=== PATIENT | male | born 1990 | race Caucasian/White ===

== ENCOUNTER 2018-09-13 10:45 | Emergency (ER) | payer OTHER ==
[2018-09-13 10:53] VITALS: BP 162/95
--- NOTE | 2018-09-13 12:00 | ED Physician Documentation ---
PD HPI ANIMAL BITE - Stated complaint Stated Complaint: LEFT HAND DOG BITE - Chief complaint Chief Complaint: Wound - History obtained from History obtained from: Patient, Family - History of Present Illness Location of injury(ies): Left hand Details of the event: Dog, Pet animal, Well appearing, Immunized, Provoked, Animal can be observed Timing - onset: Last night Timing - duration: Hours Timing - details: Abrupt onset, Still present Improved by: Rest, Immobilization Worsened by: Moving, Palpating Associated symptoms: Swelling. No: Weakness, Numbness, Tingling Similar symptoms before: Has not had sx before Recently seen: Not recently seen - Additional information Additional information: 27-year-old male was at his home last night when to dogs got into a fight. He got between the 2 dogs to stop the fight and he was bit in the left hand. The dogs are available for observation and have been immunized. The patient indicates 1 dog is his one dog is a neighbors dog. Review of Systems Constitutional: denies: Fever Eyes: denies: Decreased vision Ears: denies: Ear pain Nose: denies: Congestion Respiratory: denies: Cough GI: denies: Vomiting PD PAST MEDICAL HISTORY - Present Medications Home Medications: Ambulatory Orders Medication Instructions Recorded Confirmed Amox/Clav 875/125 [Augmentin] 1 each PO Q12H #14 tablet 09/13/18 - Allergies Allergies/Adverse Reactions: Allergies Allergy/AdvReac Type Severity Reaction Status Date / Time No Known Drug Allergies Allergy Verified 09/13/18 10:53 PD ED PE NORMAL - Vitals Vital signs reviewed: Yes (hypertensive ) - General General: Alert and oriented X 3, No acute distress, Well developed/nourished - HEENT HEENT: Atraumatic, PERRL, EOMI - Respiratory Respiratory: No respiratory distress - Derm Derm: Normal color, Warm and dry - Extremities Extremities: No deformity, No edema, Other (There are 2 puncture wounds to the dorsum of the left hand. There is swelling and redenss associated more than expected for the bite alone. There is no lymphangitic streaking and the extent of the discoloration is about 1cm. 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 Departure - Departure Disposition: 01 Home, Self Care Clinical Impression: Infected dog bite of hand Qualifiers: Encounter type: initial encounter Laterality: left Qualified Code(s): S61.452A - Open bite of left hand, initial encounter; L08.9 - Local infection of the skin and subcutaneous tissue, unspecified; W54.0XXA - Bitten by dog, initial encounter Instructions: ED Bite Animal General Follow-Up: [facility] [Provider Group] Prescriptions: Amox/Clav 875/125 [Augmentin] 1 each PO Q12H #14 tablet
== END 2018-09-13 12:08 | disposition home or self-care (01) ==
LOC: ED 10:45
DX: S61.452A Open bite of left hand, initial encounter (principal); W54.0XXA Bitten by dog, initial encounter
CPT/HCPCS: 99283

== ENCOUNTER 2019-07-21 13:16 | Outpatient (CLI) | payer OTHER | END 2019-07-21 13:17 | disposition home or self-care (01) | LOC: COV 13:16 | PROVIDERS: ATTEND Family Medicine | DX: R05 Cough (principal); R50.9 Fever, unspecified | CPT/HCPCS: 81599 ==

== ENCOUNTER 2020-05-09 12:54 | Outpatient (CLI) | payer OTHER ==
--- NOTE | 2020-05-09 14:32 | MRI Report ---
PROCEDURE: Knee LT W/O INDICATIONS: LEFT KNEE SPRAIN TECHNIQUE: Noncontrast sagittal PD fast spin echo and T2 fast spin echo with fat saturation, sagittal 3-D spoile d GE with fat saturation; coronal T1 spin echo and PD fast spin echo with fat saturation, and axial P D fast spin echo with fat saturation through the knee. COMPARISON: None. FINDINGS: Image quality: Excellent. Menisci: The medial and lateral menisci are intact. There is no meniscal extrusion. Cruciate ligaments: The anterior and posterior cruciate ligaments appear intact. Medial structures: The medial collateral ligament appears intact. The semimembranosus tendon insert ions appear intact. Visualized portions of the pes anserinus tendons appear normal. Lateral structures: The lateral collateral ligament, long and short heads of the biceps femoris tend on appear intact. The popliteus tendon appears mildly attenuated near its femoral attachment without signs of an acute tear. Iliotibial band appears normal. Anterior structures: There is mild proximal patellar tendinosis. Ossifications adjacent to the tibial tubercle are compatible with a history of Crook-Schlatter syndrome. No femoral trochlear dysplasia or ventral trochlear prominence. No edema in the infrapatellar fat pad. Bones and cartilage: No bone marrow contusion or acute fracture. The cartilage of the medial and la teral femorotibial compartments, as well as the patellofemoral compartment, appears normal in thickne ss. Joint space and soft tissues: There is a small joint effusion. There is no medial popliteal cyst. A lobulated ganglion cyst is seen adjacent to the origin of the medial head of the gastrocnemius muscl e measuring 2.3 x 1.9 x 1.5 cm. IMPRESSION: 1. No acute trabecular bone injury. The cruciate and collateral ligaments are intact. There is no me niscal tear. 2. Mild proximal patellar tendinosis. 3. Lobulated 2.3 cm pericapsular ganglion cyst is seen adjacent to the origin of the medial head of the gastrocnemius muscle. 4. Small joint effusion. Reviewed by: Neftali Thurman MD on 05/09/2020 2:31 PM PST Approved by: Neftali Thurman MD on 05/09/2020 2:31 PM PST Station ID: [id number]
== END 2020-05-09 12:55 | disposition home or self-care (01) ==
LOC: DI 12:54
PROVIDERS: ATTEND Student in an Organized Health Care Education/Training Program
DX: M67.462 Ganglion, left knee (principal)

== ENCOUNTER 2022-02-28 11:17 | Emergency (ER) | payer OTHER, BC ==
[2022-02-28 11:30] VITALS: BP 142/86
--- NOTE | 2022-02-28 12:17 | XRAY Report ---
PROCEDURE: Foot 3 View RT INDICATIONS: Trauma TECHNIQUE: 3 views of the foot were acquired. COMPARISON: None FINDINGS: Bones: No acute fractures or dislocations. Well-corticated fragment over dorsal aspect of talus is seen suggestive of old healed injury. No suspicious bony lesions. Soft tissues: No tibiotalar joint effusion. Achilles tendon appears normal. IMPRESSION: No acute right foot fracture or dislocation. No gross soft tissue disease. Reviewed by: Melquiades Rae MD on 02/28/2022 12:15 PM PDT Approved by: Melquiades Rae MD on 02/28/2022 12:15 PM PDT Station ID: [id number]
--- NOTE | 2022-02-28 13:05 | ED Physician Documentation ---
PD HPI LOWER EXT INJURY - Stated complaint Stated Complaint: R FOOT INJ - Chief complaint Chief Complaint: Trauma Ext - History obtained from History obtained from: Patient (Healthy gentleman works [place] [employer] [place] and had a low trailer rollover his right foot at work just prior to arrival. He has pain in the area between the distal first and second metatarsals for the most part with bruising there as well. No other injuries. He is able to walk and bear weight.) Review of Systems Constitutional: reports: Reviewed and negative Eyes: reports: Reviewed and negative Ears: reports: Reviewed and negative PD PAST MEDICAL HISTORY - Present Medications Home Medications: Ambulatory Orders Medication Instructions Recorded Confirmed Amox/Clav 875/125 [Augmentin] 1 each PO Q12H #14 tablet 09/13/18 - Allergies Allergies/Adverse Reactions: Allergies Allergy/AdvReac Type Severity Reaction Status Date / Time No Known Drug Allergies Allergy Verified 02/28/22 11:30 PD ED PE NORMAL - Vitals Vital signs reviewed: Yes - General General: Alert and oriented X 3, No acute distress - Extremities Extremities: Other (Bruising and swelling with mild tenderness on the dorsum of the right foot in the area of the distal first and second metatarsals, pain with range of motion of the great toe but not the others. No proximal foot or ankle tenderness.) - Neuro Neuro: Alert and oriented X 3, Normal speech Results - Vitals Vitals: Vital Signs - 24 hr 02/28/22 11:26 Temperature 36.0 C L Heart Rate 77 Respiratory 16 Rate Blood Pressure 142/86 H O2 Saturation 98 Oxygen O2 Source Room air - Rads (name of study) Three-view x-ray of the right foot is negative for evidence of acute bony trauma. Radiology: EMP read contemporaneously Departure - Departure Disposition: 01 Home, Self Care Clinical Impression: Crush injury of right foot Condition: Good Record reviewed to determine appropriate education?: Yes Instructions: ED Crush Injury Toe No Fx Comments: The x-ray was negative, you may walk and bear weight as tolerated. Return for new or worsening symptoms. Follow-up with your primary care physician if not better in a week for reevaluation. You can take 600 mg / 3 tablets of [id number] ibuprofen every 6 hours as needed for pain. Ice and elevate. Discharge Date/Time: 02/28/22 13:11
== END 2022-02-28 13:11 | disposition home or self-care (01) ==
LOC: ED 11:17
DX: S97.81XA Crushing injury of right foot, initial encounter (principal); V09.9XXA Pedestrian injured in unspecified transport accident, initial encounter; Y92.139 Unspecified place military base as the place of occurrence of the external cause; Y99.0 Civilian activity done for income or pay
CPT/HCPCS: 99282; 99283

== ENCOUNTER 2022-04-24 08:20 | Outpatient (CLI) | payer OTHER ==
--- NOTE | 2022-04-24 10:17 | XRAY Report ---
PROCEDURE: Foot 3 View RT INDICATIONS: R FOOT PX TECHNIQUE: 3 views of the foot were acquired. COMPARISON: 02/28/2022 FINDINGS: Bones: No fractures or dislocations. No suspicious bony lesions. Soft tissues: No tibiotalar joint effusion. Achilles tendon appears normal. IMPRESSION: Unremarkable radiographic examination of right foot. No signs of healing fracture. Reviewed by: Melquiades Rae MD on 04/24/2022 10:15 AM [facility] Approved by: Melquiades Rae MD on 04/24/2022 10:15 AM [facility] Station ID: [id number]
== END 2022-04-24 08:21 | disposition home or self-care (01) ==
LOC: DI.N 08:20
PROVIDERS: ATTEND Registered Nurse
DX: S90.31XD Contusion of right foot, subsequent encounter (principal); R20.2 Paresthesia of skin